=== PATIENT | female | born 1955 | race Caucasian/White ===

== ENCOUNTER 2023-03-09 11:30 | Emergency (ER) | payer BC | END 2023-03-09 15:55 | disposition home or self-care (01) | LOC: LL.ED 11:30 | DX: T78.3XXA Angioneurotic edema, initial encounter (principal); I11.0 Hypertensive heart disease with heart failure; I50.9 Heart failure, unspecified | CPT/HCPCS: 99283 ==

== ENCOUNTER 2023-10-25 13:28 | Emergency (ER) | payer BC ==
[2023-10-25] MEDS: Albuterol/Ipratropium 3.0-0.5 MG/3 ML Neb Soln NEB ONE (13:30)
[2023-10-25 13:40] VITALS: BP 147/75; PULSE 77
[2023-10-25] MEDS: Acetaminophen 500 MG Tab PO ONE (14:50)
[2023-10-25] MEDS ORDERED: Sodium Chloride 0.9% 10 ML Syringe FLUSH PRN (18:26)
== END 2023-10-25 15:30 | disposition home or self-care (01) ==
LOC: LL.ED 13:28
DX: J20.8 Acute bronchitis due to other specified organisms (principal); I10 Essential (primary) hypertension; Z88.8 Allergy status to other drugs, medicaments and biological substances; Z79.51 Long term (current) use of inhaled steroids; Z79.899 Other long term (current) drug therapy
CPT/HCPCS: 71045; 99283; A9270-GY; J7620-GY

== ENCOUNTER 2024-12-11 17:22 | Emergency (ER) | payer BC, MEDICARE ==
[2024-12-11 18:18] VITALS: BP 110/64; PULSE 61
== END 2024-12-11 18:15 | disposition home or self-care (01) ==
LOC: LL.ED 17:22
DX: S50.861A Insect bite (nonvenomous) of right forearm, initial encounter (principal); I11.0 Hypertensive heart disease with heart failure; I50.30 Unspecified diastolic (congestive) heart failure; J45.909 Unspecified asthma, uncomplicated; K21.9 Gastro-esophageal reflux disease without esophagitis; Z88.8 Allergy status to other drugs, medicaments and biological substances; Z91.048 Other nonmedicinal substance allergy status; Z79.51 Long term (current) use of inhaled steroids; Z79.899 Other long term (current) drug therapy; W57.XXXA Bitten or stung by nonvenomous insect and other nonvenomous arthropods, initial encounter
CPT/HCPCS: 99281; 99283